=== PATIENT | male | born 1945 | race Caucasian/White ===

== ENCOUNTER 2018-11-08 19:43 | Inpatient (IN) | payer MEDICARE, OTHER ==
[~2018-11-08 19:43] MED LIST: Iopamidol 370 76% 100 ML VIAL ONE; Iopamidol 370 76% 50 ML VIAL FS ONE
[2018-11-08] MEDS ORDERED: Ondansetron PF 4 MG/2 ML Vial ONE (21:30)
--- NOTE | 2018-11-08 22:00 | CT ---
CT ABDOMEN AND PELVIS WITH CONTRAST: HISTORY: Abdominal pain with nausea. COMPARISON: Recent radiograph, same date. FINDINGS: Scarring/atelectasis at the imaged lung bases. Liver: No focal hepatic lesion. Gallbladder: Unremarkable. Pancreas: Atrophic. Spleen: Unremarkable. Adrenal glands: Unremarkable. Kidneys: No renal calculus or acute obstruction. Bilateral parapelvic cyst formation of each kid fina noted. Bowel: Abnormal distention of fluid-filled bowel, with administered enteric contrast traversing to t he level of the jejunum. There is a point of transition at the right mid abdomen, anteriorly, with adjacent swirling of the mesentery and a torsion of the bowel, with a marked decompression of bowel l umen within this region, compatible with a high-grade transition point. Urinary Bladder: The urinary bladder is unremarkable. Adenopathy: No adenopathy within the abdomen or pelvis. Free Air: No free air. Ascites: No ascites. Osseous structures: No acute osseous abnormalities. IMPRESSION: High-grade mechanical bowel obstruction with point of transition at the right mid abdomen. At this s ite, there is swirling of the mesentery and torsion of the bowel, which may relate to an internal hernia. Recommend surgical consultation. Transcribed Date/Time: 11/08/2018 11:29 PM
[2018-11-08] MEDS ORDERED: hydrALAZINE 20 MG/ML VIAL SLOW IVP PRN (23:06)
[2018-11-08] MEDS ORDERED: Sodium Chloride 0.9% (PF) 10 ML VIAL FS PRN (23:13)
[2018-11-08] MEDS ORDERED: Sodium Chloride 0.9% 1,000 ML IV SCH (23:15)
[2018-11-08] MEDS ORDERED: Chloraseptic Spray 180 ml Bottle PO PRN (23:18)
[2018-11-09] MEDS: D5 1/2 NS w/20 mEq KCL 1,000 ML IV SCH ×3 (00:27→17:50)
[2018-11-09 01:47] VITALS: BMI 31.2
--- NOTE | 2018-11-09 03:10 | HP ---
CHIEF COMPLAINT: Nausea and vomiting. HISTORY OF PRESENT ILLNESS: Mr. Nguyen is a 73-year-old male who began feeling gassy last night. He woke up around 4 o'clock this morning with severe nausea and vomited several times. He would have some abdominal pain right before he throws up, which was relieved by vomiting. This happened about every 2 hours all day long, so he came into the emergency room and had an abdominal film performed, which was worrisome for a bowel obstruction. He was sent to [place] for further evaluation and a CT was performed, which confirmed the diagnosis. He had an NG tube placed with removal of about 2 L of fluid from his stomach and the nausea completely resolved. He continues to deny any abdominal pain. He states that he had a normal bowel movement this morning, but did not pass much gas as he usually does and does not think he has passed gas all day today. PAST MEDICAL HISTORY: Hypertension, hyperlipidemia, and prostate cancer. PAST SURGICAL HISTORY: Prostatectomy and bilateral knee replacement. ALLERGIES: HE HAS NO KNOWN DRUG ALLERGIES. MEDICATION: He takes a medication for his blood pressure and another for his cholesterol, but does not remember the names of his medications. REVIEW OF SYSTEMS: Ten system review of systems is negative except per HPI. PHYSICAL EXAMINATION: VITAL SIGNS: The patient is afebrile, slightly tachycardic and hypertensive. Normal O2 sats and respirations. GENERAL: Reveals an elderly man, in no acute distress. Resting comfortably in bed with an NG tube in place with brown fluid in the tubing and canister. HEENT: Unremarkable. NECK: Supple without lymphadenopathy or thyroid nodules. HEART: Regular in its rate and rhythm. He has a soft systolic murmur heard best at the right upper sternal border. LUNGS: Clear to auscultation bilaterally. ABDOMEN: Soft and distended, non-tympanitic. He states that his girth is normal for him. No palpable masses or hernias. Nontender to palpation. EXTREMITIES: Warm well perfused without edema. NEUROLOGIC: No focal deficits. PSYCHIATRIC: Alert, oriented and appropriate. LABORATORY DATA: White count is mildly elevated at 15, hematocrit is up from its baseline at 53, it normally runs 44-49, BUN and creatinine are also up from their baseline, there are 27 and 1.55, whereas they were 18 and 0.93 last month. Blood sugar is mildly elevated at 175. LFTs are normal. Lactate is normal. IMAGING: CT images were reviewed and I agree with the written results. The patient does appear to have a fairly high-grade small bowel obstruction involving primarily the proximal jejunum. ASSESSMENT: High-grade small bowel obstruction, currently asymptomatic with NG tube in place. Options include surgical exploration or observation. The patient is clinically benign on exam. He is somewhat dehydrated, so I have ordered IV fluids. After discussion of the options, we are going to try a brief period of observation. If at any point he develops worsening abdominal pain or nausea or develops abdominal tenderness, he will be taken to the operating room. If his symptoms resolve, then a 2nd contrast study will likely be obtained in 24-48 hours. His family has been asked to bring in his home medications. We will clamp his NG tube for him to get up and ambulate. I have ordered Lovenox and sequential compression devices for deep venous thrombosis prophylaxis and Protonix for gastrointestinal prophylaxis. All of his and his family's questions were answered and admit orders have been written. Thanks very much. Job ID: [id number]
[2018-11-09 05:15] LABS: #Eosinphils 0.2 thou/uL (0.0-0.7); #Lymphocytes 2.2 thou/uL (1.20-3.40); #Monocytes 1.1 thou/uL (0.11-0.59); #Neutrophils 8.4 thou/uL (1.40-6.50); %Basophils 0.4 % (0.0-1.0); %Eosinophils 1.6 % (0.0-10.0); %Lymphocytes 18.3 % (21.0-51.0); %Monocytes 9.5 % (0.0-10.0); %Neutrophils 70.2 % (42.0-75.0); Hemoglobin 15.9 g/dL (14.0-18.0); Mean Corpuscular HGB CONC 33.2 g/dL (32.0-36.0); Mean Corpuscular Hemoglobin 31.9 pg (27.0-31.0); Mean Corpuscular Volume 96.2 fL (78.0-98.0); Mean Platelet Volume 9.1 fL (7.4-10.4); Platelet Count 246 thou/uL (130-400); RBC Distribution Width 12.4 % (11.5-14.5); Red Blood Cell (RBC) Count 4.99 mill/uL (4.70-6.10); White Blood Cell (WBC) Count 11.9 thou/uL (4.8-10.8)
[2018-11-09 05:24] LABS: ALT (SGPT) 12 U/L (8-55); AST (SGOT) 13 U/L (5-34); Albumin 2.9 g/dL (3.4-4.8); Alkaline Phosphatase 52 U/L (40-150); Anion Gap 12 mmol/L (10-20); BUN (Urea Nitrogen) 22 mg/dL (8.4-25.7); Bilirubin, Total 0.9 mg/dL (0.2-1.2); Calc. Creatinine Clearance 101 mL/min (70-130); Calcium 8.9 mg/dL (7.8-10.44); Carbon Dioxide 27 mmol/L (23-31); Chloride 102 mmol/L (98-107); Estimated GFR-MDRD 69; Globulin 3.7 g/dL (2.4-3.5); Glucose 160 mg/dL (83-110); Magnesium 1.6 mg/dL (1.6-2.6); Phosphorus 4.4 mg/dL (2.3-4.7); Potassium 3.9 mmol/L (3.5-5.1); Protein, Total 6.6 g/dL (5.8-8.1); Sodium 137 mmol/L (136-145)
[2018-11-09] MEDS: Pantoprazole 40 MG VIAL IVP SCH ×2 (09:08→20:40)
[2018-11-09] MEDS: Enoxaparin Sodium 40 MG/0.4 ML SYRINGE SC SCH ×2 (09:08→20:40)
--- NOTE | 2018-11-09 19:25 | PDOC.GSPN ---
Surgery Progress Note: Subj - Subjective Narrative: Mr. Nguyen feels better today. No nausea or vomiting. He is passing gas and having bowel movements. NG tube output has gone down today although he had quite a bit out last night. His abdomen is soft and nontender but still distended. Bowel sounds are slightly hyperactive. Labs look better today. I will leave the NG tube in tonight and get a Gastrografin small bowel follow- through in the morning. I suspect the bowel obstruction is resolving on its own. Surgery Progress Note: Obj - Vital signs Vital signs: Vital Signs - Most Recent Temp Pulse Resp BP Pulse Ox 98.7 F 98 18 138/85 98 11/09/18 15:14 11/09/18 15:14 11/09/18 15:14 11/09/18 15:14 11/09/18 15:14 Surgery Progress Note: Results - Labs Result Diagrams: 11/09/18 04:36 11/09/18 04:36
[2018-11-10] MEDS: D5 1/2 NS w/20 mEq KCL 1,000 ML IV SCH ×4 (00:43→23:07)
[2018-11-10] MEDS: Pantoprazole 40 MG VIAL IVP SCH (08:37)
[2018-11-10] MEDS: Enoxaparin Sodium 40 MG/0.4 ML SYRINGE SC SCH ×2 (08:38→20:32)
[2018-11-10] MEDS ORDERED: MD-Gastroview 120 ML BOT ONE (14:04)
--- NOTE | 2018-11-10 14:14 | RAD ---
Small bowel follow-through: 11/10/2018 COMPARISON: None HISTORY: Evaluate small bowel obstruction FINDINGS: [employer] imaging of the abdomen demonstrates moderately dilated gas-filled loops of small alex l within the mid abdomen/left midabdomen with probable wall thickening suggesting bowel wall edema. There is a nasogastric tube with in the left upper quadrant. The patient was administered Gastrografin via the nasogastric tube. 1 minute and 15 minute imaging fo llowing administration demonstrates contrast media within dilated proximal jejunal loops. Imaging at 30 minutes and 45 minutes demonstrates filling of additional dilated proximal small bowel loops. A t 1 hour there are multiple persistent dilated proximal/mid small bowel loops. Imaging was then performed at 4 hours, demonstrating contrast media within the colon. There is persistent opacificatio n of proximal dilated small bowel with distal normal caliber small bowel. IMPRESSION: Contrast media reaches the colon by 4 hours. There is persistent dilated proximal small b owel with more normal caliber distal small bowel suggesting partial small bowel obstruction.
[2018-11-10] MEDS ORDERED: Amlodipine 10 MG TAB PO SCH (21:00)
[2018-11-10] MEDS ORDERED: Losartan 25 MG TAB PO SCH (21:00)
[2018-11-10] MEDS ORDERED: Amitriptyline HCl 25 MG TAB PO SCH (21:00)
[2018-11-10] MEDS ORDERED: Hydrochlorothiazide 25 MG TAB PO SCH (21:00)
[2018-11-10] MEDS ORDERED: Atorvastatin Calcium 10 MG TAB PO SCH (21:00)
--- NOTE | 2018-11-11 08:10 | PRG ---
DATE OF SERVICE: 11/10/2018 SUBJECTIVE: Mr. Nguyen feels good. He is passing gas and having normal bowel movements. He states that he is not having any nausea or distentions and his abdomen feels normal. He has his gastrografin small bowel followthrough this morning. At 1 hour, the contrast was still in the small intestine, the next images were 4 hours and by that time, the contrast had passed to the rectum. He does have some persistent distention of the proximal small bowel suggesting that a partial obstruction still exists that he has normal bowel sounds, his abdomen is nondistended, completely nontender and his NG tube has been clamped all day. ASSESSMENT AND PLAN: Partial small-bowel obstruction gastrografin small bowel followthrough. Options include surgical intervention or trial of diet and he prefers trial of diet. His NG tube was removed and he was started on clear liquids. If he tolerates that recommended. Job ID: [id number]
[2018-11-11] MEDS: D5 1/2 NS w/20 mEq KCL 1,000 ML IV SCH ×2 (08:46→12:36)
[2018-11-11] MEDS: Enoxaparin Sodium 40 MG/0.4 ML SYRINGE SC SCH (08:46)
[2018-11-11] MEDS ORDERED: Fish Oil 1,000 MG CAP PO SCH (09:00)
[2018-11-11] MEDS ORDERED: Aspirin 81 mg Enteric Coated Tablet PO SCH (09:00)
[2018-11-11 16:35] VITALS: BP 150/86; TEMP 98.6
[2018-11-11] MEDS ORDERED: Non-Formulary Item 1 EACH (Benazepril Hcl [Benazepril Hcl] 40 MG) PO SCH (21:00)
[2018-11-11] MEDS ORDERED: Amitriptyline HCl 25 MG TAB PO SCH (21:00)
[2018-11-11] MEDS ORDERED: Simvastatin 20 MG TAB PO SCH (21:00)
[2018-11-11] MEDS ORDERED: Atorvastatin Calcium 10 MG TAB PO SCH (21:00)
[2018-11-11] MEDS ORDERED: Amlodipine 10 MG TAB PO SCH (21:00)
[2018-11-11] MEDS ORDERED: Non-Formulary Item 1 EACH (Amitriptyline Hcl [Amitriptyline Hcl] 50 MG) PO SCH (21:00)
[2018-11-11] MEDS ORDERED: Non-Formulary Item 1 EACH (Losartan/Hydrochlorothiazide [Losartan-Hctz 100-12.5 Mg Tab] 1 PO SCH (21:00)
[2018-11-12] MEDS ORDERED: Non-Formulary Item 1 EACH (Esomeprazole Magnesium [Nexium 24hr] 20 MG) PO SCH (09:00)
[2018-11-12] MEDS ORDERED: Losartan 25 MG TAB PO SCH (09:00)
[2018-11-12] MEDS ORDERED: Aspirin 81 mg Enteric Coated Tablet PO SCH (09:00)
[2018-11-12] MEDS ORDERED: Fish Oil 1,000 MG CAP PO SCH (09:00)
[2018-11-12] MEDS ORDERED: Hydrochlorothiazide 25 MG TAB PO SCH (09:00)
== END 2018-11-11 17:40 | disposition home or self-care (01) | DRG 390 ==
LOC: ERS 19:43 → SURG B 23:23
PROVIDERS: ADMIT Surgery; ATTEND Surgery
DX: K56.600 Partial intestinal obstruction, unspecified as to cause (principal); I10 Essential (primary) hypertension; E78.5 Hyperlipidemia, unspecified; F17.220 Nicotine dependence, chewing tobacco, uncomplicated; Z96.653 Presence of artificial knee joint, bilateral; Z79.899 Other long term (current) drug therapy; Z85.46 Personal history of malignant neoplasm of prostate
CPT/HCPCS: 36415; 74177; 74250; 80053; 83735; 84100; 85025; 96374; C9113; J1650; J2405; Q9963; Q9967

== ENCOUNTER 2018-11-29 10:21 | Inpatient (IN) | payer MEDICARE, OTHER ==
[2018-11-29 10:56] LABS: #Eosinphils 0.1 thou/uL (0.0-0.7); #Lymphocytes 0.8 thou/uL (1.20-3.40); #Monocytes 0.8 thou/uL (0.11-0.59); #Neutrophils 12.6 thou/uL (1.40-6.50); %Basophils 0.1 % (0.0-1.0); %Eosinophils 0.4 % (0.0-10.0); %Lymphocytes 5.5 % (21.0-51.0); %Monocytes 5.8 % (0.0-10.0); %Neutrophils 88.2 % (42.0-75.0); Hemoglobin 17.1 g/dL (14.0-18.0); Mean Corpuscular HGB CONC 33.4 g/dL (32.0-36.0); Mean Corpuscular Hemoglobin 32.7 pg (27.0-31.0); Mean Corpuscular Volume 97.7 fL (78.0-98.0); Mean Platelet Volume 8.5 fL (7.4-10.4); Platelet Count 271 thou/uL (130-400); RBC Distribution Width 12.4 % (11.5-14.5); Red Blood Cell (RBC) Count 5.24 mill/uL (4.70-6.10); White Blood Cell (WBC) Count 14.3 thou/uL (4.8-10.8)
[2018-11-29 11:16] LABS: ALT (SGPT) 12 U/L (8-55); AST (SGOT) 12 U/L (5-34); Albumin 3.2 g/dL (3.4-4.8); Alkaline Phosphatase 54 U/L (40-150); Anion Gap 14 mmol/L (10-20); BUN (Urea Nitrogen) 28 mg/dL (8.4-25.7); Bilirubin, Total 0.9 mg/dL (0.2-1.2); Calc. Creatinine Clearance 0 mL/min (70-130); Calcium 8.8 mg/dL (7.8-10.44); Carbon Dioxide 23 mmol/L (23-31); Chloride 103 mmol/L (98-107); Estimated GFR-MDRD 47; Globulin 3.8 g/dL (2.4-3.5); Glucose 149 mg/dL (83-110); Lipase 7 U/L (8-78); Potassium 3.5 mmol/L (3.5-5.1); Sodium 136 mmol/L (136-145)
--- NOTE | 2018-11-29 11:50 | CT ---
EXAM: CT ABDOMEN AND PELVIS HISTORY: Nausea. Vomiting. COMPARISON: 11/08/2018 Procedure: Multiple contiguous axial images were obtained and a CT of the abdomen and pelvis with IV contrast. C oronal reformats were performed. FINDINGS: Lower Chest: Scarring and atelectasis in the lung bases Vessels: Normal caliber aorta. Heart: Normal heart size. Atherosclerosis of the aortic valve. No pericardial fluid Abdomen: Portal vein:Patent Gallbladder: No calcified gallstones. Normal caliber wall. Liver: within normal limits. Pancreas: Stable atrophy. Spleen: within normal limits. Adrenals: within normal limits. Kidneys: Symmetric enhancement. Stable bilateral parapelvic cyst. Bilaterally no structural uropathy. Peritoneum: No ascites or free air, no fluid collection. Bowel: Limited evaluation due to the absence of oral contrast hydration. The mid to distal jejunal lo ops are dilated and fluid-filled. There appears to be a transition at the level of the distal jejunal loop/proximal ileum. Mid to distal ileum are decompressed. Ileocecal junction is normal. Appe ndix is not appreciated. No inflammation of the cecal apex. Fluid attenuation in the right hemicolon. Decompressed left hemicolon. Occasional diverticulum. No diverticulitis. Mesentery and Retroperitoneum: No enlarged mesenteric or retroperitoneal lymph nodes. Abdominal Wall: within normal limits. Pelvis: Reproductive Organs: No pelvic masses. Pelvis: within normal limits. Bladder: within normal limits. Bones: within normal limits. IMPRESSION: 1. Fluid-filled, dilated loops of small bowel. There is evidence for early, partial small bowel obstr uction. General surgical consultation is recommended.
[2018-11-29] MEDS ORDERED: Benzocaine 20% Spray 60 ML CAN ONE ×2 (12:44→12:50)
[2018-11-29 12:49] LABS: Bacteria/HPF None Seen HPF (None Seen); Bilirubin Negative (Negative); Blood, Urine Negative (Negative); Clarity Clear (Clear); Glucose, Urine (Dipstick) Normal (Negative); Leukocyte Negative Leu/uL (Negative); Nitrite Negative (Negative); Protein, Urine (Dipstick) 30 mg/dL (Neg-Trace); Squamous Epithelial 0-3 HPF (0-3); Urobilinogen Normal mg/dL (Less than 2); WBC/HPF 0-3 HPF (0-3)
[2018-11-29] MEDS ORDERED: hydrALAZINE 20 MG/ML VIAL SLOW IVP PRN (13:04)
[2018-11-29] MEDS ORDERED: ISOVUE-370 76%-LOCM 1 ML ONE (13:56)
[2018-11-29 15:06] VITALS: BMI 30.6
[2018-11-29] MEDS: Dextrose 5 % And 0.9 % NaCl 1,000 ML IV SCH (15:33)
[2018-11-29] MEDS ORDERED: Sodium Chloride 0.9% 1,000 ML IV SCH (18:00)
--- NOTE | 2018-11-29 21:09 | HP ---
I have examined the patient. I have discussed the case with Dr. Maryanne Damon and agree with her assessment and plan. HISTORY OF PRESENT ILLNESS: Mr. Sameer Nguyen is a very pleasant 73-year-old white man, who presented to the ER with abdominal pain and distention. He had been hospitalized approximately three weeks ago on October for very similar issues. At that time, he was found to have a small-bowel obstruction, which mostly resolved with dietary changes and NG suctioning. He elected at that time to continue a slow advancement of the diet as opposed to surgery and was discharged. He stated he did very well for the next three weeks until last night at approximately 10:00 a.m. At that time, he has had developed worsening abdominal pain and several episodes of vomiting. This prompted his visit to the ER today, where he was subsequently found to have a recurrent small-bowel obstruction. PHYSICAL EXAMINATION: VITAL SIGNS: His blood pressure is 126/76, his pulse rate is 88 and regular. He is afebrile. GENERAL: He is awake, alert, and very pleasant, in no acute distress. EAR, NOSE, AND THROAT: Mucous membranes slightly dry. No erythema or exudate. NECK: Supple. CARDIAC: Heart rhythm is regular. S4 gallop. No murmur or rub noted. LUNGS: Diminished, but clear. No rales, rhonchi, or wheezes. ABDOMEN: Slightly distended diffusely and minimally tender. No rebound or rigidity. He has a well-healed midline incision from the umbilicus distally from an old surgery for prostate cancer. No bruits are noted. EXTREMITIES: No edema. NEUROLOGIC: No focal deficits. LABORATORY DATA: CBC; white count is 14,300, hemoglobin is 17.1, hematocrit 51.2, probably reflecting some degree of dehydration. Chemistries; sodium is 136, potassium 3.5, chloride 103, bicarb 23, BUN 28, creatinine 1.47, again probably reflecting mild JAMAL caused by dehydration. Abdominal and pelvis CT showed fluid-filled dilated loops of small bowel. There was evidence for early partial small-bowel obstruction. ASSESSMENT: Small-bowel obstruction. PLAN: NG suctioning, IV fluids. Surgery has already been consulted and we will await their input and follow with them. Job ID: [id number]
--- NOTE | 2018-11-29 21:27 | CON ---
DATE OF CONSULTATION: 11/29/2018 PRIMARY SERVICE: General surgery, Dr. Wilkinson. HISTORY OF PRESENT ILLNESS: Sameer Nguyen is a 73-year-old male with past medical history of hypertension and prostate cancer, who presented to the ER complaining of abdominal pain, nausea, vomiting. The patient reported that a couple of weeks ago, he was diagnosed with a partial small-bowel obstruction, was placed on a clear liquid diet and instructed to follow up for hopeful resolution. He reports that he was able to tolerate liquids and then transitioned to a regular diet and ate some red meat and then yesterday, started having severe abdominal pain, increased flatulence, nausea, vomiting with multiple episodes of emesis starting around 10:00 p.m. last night. The patient reported yesterday morning, he had a normal full bowel movement; today, had a very watery bowel movement. The patient denies any fevers or chills. The patient does have a history of prostatic resection. PAST MEDICAL HISTORY: 1. Hypertension. 2. Prostate cancer. 3. Hyperlipidemia. PAST SURGICAL HISTORY: 1. Bilateral partial knee replacement. 2. Prostatectomy. MEDICATIONS: 1. Amitriptyline 50 mg p.o. daily. 2. Amlodipine 10 mg p.o. daily. 3. Simvastatin 20 mg p.o. h.s. 4. Benazepril 40 mg p.o. daily. 5. Cozaar 100 mg p.o. daily. ALLERGIES: NO KNOWN DRUG ALLERGIES. FAMILY HISTORY: Denies. SOCIAL HISTORY: The patient is . Drinks socially and chews tobacco. REVIEW OF SYSTEMS: A 10-point review of systems was conducted and was negative except what was mentioned in HPI. PHYSICAL EXAMINATION: VITAL SIGNS: Blood pressure 121/67, pulse 102, respiratory rate 18, temperature 98.3, weight 111 kg. GENERAL: Alert, oriented, resting comfortably in bed, in no acute distress. HEENT: Moist mucous membranes. Normocephalic, atraumatic. Extraocular muscles intact. No scleral icterus or conjunctival injection. No pharyngeal erythema or exudates. NECK: Supple. No lymphadenopathy. CARDIOVASCULAR: Regular rate and rhythm. No murmurs, gallops, or rubs. LUNGS: Clear to auscultation bilaterally. No wheezes. No use of accessory muscles of respiration. ABDOMEN: Protuberant. Mildly distended. Soft and nontender to palpation. Hyperactive bowel sounds. MUSCULOSKELETAL: No cyanosis or edema. SKIN: No rashes or lesions. NEUROLOGIC: Cranial nerves 2 through 12 intact. 5/5 strength in all 4 extremities. No focal deficits. PSYCHIATRIC: Alert and oriented. Euthymic mood. Congruent affect. Memory grossly intact. LABORATORY DATA: WBC 14.3, hemoglobin 17.1, hematocrit 51.2, platelet count 271. Sodium 136, potassium 3.5, chloride 103, CO2 of 23, BUN 28, creatinine 1.47, GFR 47, AST 12, ALT 12, total bilirubin 0.9, alkaline phosphatase 54. Lipase 7. IMAGING STUDIES: CT abdomen and pelvis was performed that showed fluid-filled dilated loops of small bowel consistent with early partial small-bowel obstruction. ASSESSMENT AND PLAN: 1. Small-bowel obstruction. Dr. Wilkinson is primary for this patient and will follow his records for the plan. The NG tube being placed during my assessment of the patient in the ED. We will continue keeping the patient n.p.o. at this time. 2. Acute kidney injury on chronic kidney disease 2. The patient likely dehydrated due to nausea, vomiting, and decreased p.o. intake. We will give normal saline at 125 mL/h. 3. Hypertension. The patient is currently n.p.o. due to small-bowel obstruction. We will restart home blood pressure medicines once tolerating p.o. We will put for hydralazine p.r.n. if systolic blood pressure greater than 180. 4. Prostate cancer, status post resection, aware. Primary care physician, Dr. Cobb. This patient's history and physical, assessment, and plan were discussed with Dr. Heron Mckeon, who agrees with the plan as discussed. We appreciate the opportunity to participate in the care of this patient. Job ID: [id number]
--- NOTE | 2018-11-29 23:22 | HP ---
CHIEF COMPLAINT: Nausea, vomiting. HISTORY OF PRESENT ILLNESS: The patient is a 73-year-old male who 3 weeks ago was admitted with a small bowel obstruction, resolved. Yesterday, started vomiting again and developed abdominal distention. He stated after he was vomiting, he had a bowel movement. He had a good bowel movement this morning, but he was still having some bloating and nausea, so he came to the hospital. He denies any fever or chills. He is not passing flatus. He had a robot prostatectomy in 2016, his only abdominal surgery. He had a colonoscopy and EGD about a year ago. PAST MEDICAL HISTORY: Hypertension, hyperlipidemia. PAST SURGICAL HISTORY: He had knee surgery x2 and a robotic prostatectomy. ALLERGIES: NO KNOWN DRUG ALLERGIES. MEDICATIONS: 1. Simvastatin. 2. Amlodipine. 3. Amitriptyline. 4. Benazepril. 5. Losartan. SOCIAL HISTORY: He is . 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 He uses oral tobacco one can per day. Social alcohol. FAMILY HISTORY: Noncontributory. PHYSICAL EXAMINATION: VITAL SIGNS: Temperature is 97.8, pulse 99, blood pressure 114/72. GENERAL: He is awake, alert, in no apparent distress. He has an NG tube in, draining minimal fluid. LUNGS: Clear. HEART: Regular rate and rhythm. ABDOMEN: Obese, soft, nontender. There are some bowel sounds. LABORATORY DATA: White count 14, H and H 17 and 51, platelet count 271. Electrolytes are fine. His creatinine is elevated at 1.4, BUN of 28, glucose 149. He had a CT scan of the abdomen which showed a recurrent small bowel obstruction with mid to distal ileum decompressed and possibly transition zone at the level of the jejunum or proximal ileum. ASSESSMENT: Partial small bowel obstruction. PLAN: NG suction, IV hydration, small bowel follow-through in the morning. Job ID: [id number]
[2018-11-30] MEDS: Dextrose 5 % And 0.9 % NaCl 1,000 ML IV SCH (01:00)
[2018-11-30 05:17] LABS: #Eosinphils 0.2 thou/uL (0.0-0.7); #Lymphocytes 1.3 thou/uL (1.20-3.40); #Monocytes 0.7 thou/uL (0.11-0.59); #Neutrophils 4.4 thou/uL (1.40-6.50); %Basophils 0.7 % (0.0-1.0); %Eosinophils 3.2 % (0.0-10.0); %Lymphocytes 19.5 % (21.0-51.0); %Monocytes 10.8 % (0.0-10.0); %Neutrophils 65.9 % (42.0-75.0); Hemoglobin 14.7 g/dL (14.0-18.0); Mean Corpuscular HGB CONC 34.3 g/dL (32.0-36.0); Mean Corpuscular Hemoglobin 33.6 pg (27.0-31.0); Mean Corpuscular Volume 97.9 fL (78.0-98.0); Mean Platelet Volume 8.6 fL (7.4-10.4); Platelet Count 211 thou/uL (130-400); RBC Distribution Width 12.5 % (11.5-14.5); Red Blood Cell (RBC) Count 4.38 mill/uL (4.70-6.10); White Blood Cell (WBC) Count 6.7 thou/uL (4.8-10.8)
[2018-11-30 05:41] LABS: Anion Gap 10 mmol/L (10-20); BUN (Urea Nitrogen) 21 mg/dL (8.4-25.7); Calc. Creatinine Clearance 128 mL/min (70-130); Calcium 7.9 mg/dL (7.8-10.44); Carbon Dioxide 24 mmol/L (23-31); Chloride 106 mmol/L (98-107); Estimated GFR-MDRD Greater than 90; Glucose 131 mg/dL (83-110); Potassium 3.4 mmol/L (3.5-5.1); Sodium 137 mmol/L (136-145)
--- NOTE | 2018-11-30 08:57 | PRG ---
DATE OF SERVICE: 11/30/2018 SUBJECTIVE: The patient is passing gas. Denies any pain. Denies nausea or vomiting. OBJECTIVE: VITAL SIGNS: Temperature 98, pulse 78, blood pressure 128/72. NG tube put out just 125. LABORATORY DATA: His white count is down to 6.7, H and H 14 and 42, platelet count 211. Electrolytes are fine. ASSESSMENT: Small bowel obstruction, resolving. PLAN: Check a KUB, if it looks fairly normal. Discontinue NG and advance diet. If there is still abdominal distention, recommend a small bowel follow through. Job ID: [id number]
--- NOTE | 2018-11-30 09:15 | PDOC.FM ---
- Subjective Subjective: Mr. Nguyen is feeling well this morning. Passing gas. No other concerns. Denies abdominal pain, nausea. - Objective Vital Signs & Weight: Vital Signs (12 hours) Temp Pulse Resp BP Pulse Ox 11/30/18 08:40 93 L 11/30/18 07:10 98.1 F 78 18 128/72 93 L 11/30/18 03:10 98.1 F 86 16 159/81 H 93 L 11/29/18 23:11 98.7 F 93 16 111/70 93 L Weight Weight 111.13 kg I&O: 11/29/18 11/30/18 12/01/18 06:59 06:59 06:59 Intake Total 480 Output Total 625 Balance -145 Result Diagrams: 11/30/18 04:06 11/30/18 04:06 Phys Exam - Physical Examination Constitutional: NAD (NG in place) Respiratory: no wheezing, clear to auscultation bilateral Cardiovascular: RRR, no significant murmur Gastrointestinal: soft, non-tender (hypoactive bowel sounds) Musculoskeletal: no edema Neurological: non-focal Psychiatric: normal affect Skin: normal turgor Dx/Plan (1) SBO (small bowel obstruction) Code(s): K56.609 - UNSP INTESTNL OBST, UNSP TO PARTIAL VERSUS COMPLETE OBST Status: Acute (2) Acute kidney injury superimposed on CKD Code(s): N17.9 - ACUTE KIDNEY FAILURE, UNSPECIFIED; N18.9 - CHRONIC KIDNEY DISEASE, UNSPECIFIED Status: Acute (3) HTN (hypertension) Code(s): I10 - ESSENTIAL (PRIMARY) HYPERTENSION Status: Chronic (4) History of prostate cancer Code(s): Z85.46 - PERSONAL HISTORY OF MALIGNANT NEOPLASM OF PROSTATE Status: Chronic - Plan Plan: SBO - manage by Dr. Wilkinson. NG tube in place and patient NPO JAMAL on CKD2 - 2/2 decreased intake, volume depletion HTN - will continue to monitor, has not required prn medications - will restart home meds when able to have PO Hx prostate cancer - s/p resection Addendum - Attending - Attending Attestation Date/Time: 11/30/18 120 I personally evaluated the patient and discussed the management with Dr. Sadler I agree with the History, Examination, Assessment and Plan documented above with any addition or exceptions noted below - Patient without complaints. Denies any abdominal pain. (+) flatus. Afebrile VSS. A/P: 1) Partial SBO- plans as per surgery; NGT clamped durrently 2) HTN- well controlled currently; resume home meds once able to take po. Use prn IV meds for now if needed for BP control. Appreciate consult and will continue to follow.
--- NOTE | 2018-11-30 09:26 | RAD ---
ABDOMEN 1 VIEW: HISTORY: Small bowel obstruction. COMPARISON: CT scan 11/29/2018. FINDINGS: Persistent abnormal dilated small bowel loops in the central abdomen. Moderate amount of gas in the r ight colon and transverse colon and some gas and fecal material in the left colon and sigmoid colon. NG tube in place. IMPRESSION: Stable abnormally dilated small bowel loops with prominent gas and scattered fecal material in the co radha. Follow-up Gastrografin small bowel study might be of benefit for further assessing these dilated small bowel loops. Transcribed Date/Time: 11/30/2018 9:27 AM
[2018-11-30] MEDS ORDERED: MD-Gastroview 120 ML BOT ONE (14:41)
--- NOTE | 2018-11-30 16:22 | RAD ---
SMALL BOWEL EXAMINATION: Gastrografin small bowel exam performed. Indication: Small bowel obstruction. Correlation: CT of 11-29-18 FINDINGS: Patient was given Gastrografin orally and sequential images were obtained of the abdomen. Initial images show mild dilatation of the jejunum. Subsequent images show mild dilatation of the pro ximal ileum. Distal ilial loops appear more normal caliber. Contrast reaches the right colon within two hours. IMPRESSION: Mild proximal to mid small bowel dilatation. Contrast reaches the colon at 2 hours. There may be a lo w grade mid small bowel obstruction present. POS: ROSA
[2018-11-30] MEDS: D5 1/2 NS w/20 mEq KCL 1,000 ML IV SCH (16:24)
[2018-12-01] MEDS: D5 1/2 NS w/20 mEq KCL 1,000 ML IV SCH ×3 (00:32→08:33)
[2018-12-01] MEDS ORDERED: diphenhydrAMINE 50 MG/ML VIAL IVP SCH (01:00)
--- NOTE | 2018-12-01 09:05 | PRG ---
DATE OF SERVICE: 12/01/2018 SUBJECTIVE: The patient is feeling fine. No pain. No nausea or vomiting. He has had several bowel movements. OBJECTIVE: VITAL SIGNS: Temperature 98, pulse , blood pressure 143/79. GENERAL: He looks good. ABDOMEN: Soft, nondistended, nontender. His small bowel follow through showed some slowing, but no obstruction, went to the colon in less than 2 hours. ASSESSMENT: Small bowel obstruction, resolved. PLAN: Discontinue NG. Clear liquid diet. Advance as tolerated. Job ID: [id number]
--- NOTE | 2018-12-01 11:25 | PDOC.FM ---
- Subjective Subjective: Mr. Nguyen is feeling well. He had 3-4 bowel movements overnight. Denies nausea or abdominal pain. No concerns. - Objective Vital Signs & Weight: Vital Signs (12 hours) Temp Pulse Resp BP Pulse Ox 12/01/18 07:32 98.0 F 75 18 143/79 H 93 L 12/01/18 03:21 98.2 F 78 16 114/67 93 L 12/01/18 00:00 98.6 F 83 16 122/72 93 L Weight Weight 105.432 kg I&O: 11/30/18 12/01/18 12/02/18 06:59 06:59 06:59 Intake Total 480 1500 Output Total 625 850 Balance -145 650 Result Diagrams: 11/30/18 04:06 11/30/18 04:06 Phys Exam - Physical Examination Constitutional: NAD Respiratory: no wheezing, clear to auscultation bilateral Cardiovascular: RRR, no significant murmur Gastrointestinal: soft, non-tender, no distention, positive bowel sounds Musculoskeletal: no edema Neurological: non-focal Psychiatric: normal affect Skin: normal turgor Dx/Plan (1) SBO (small bowel obstruction) Code(s): K56.609 - UNSP INTESTNL OBST, UNSP TO PARTIAL VERSUS COMPLETE OBST Status: Acute (2) Acute kidney injury superimposed on CKD Code(s): N17.9 - ACUTE KIDNEY FAILURE, UNSPECIFIED; N18.9 - CHRONIC KIDNEY DISEASE, UNSPECIFIED Status: Acute (3) HTN (hypertension) Code(s): I10 - ESSENTIAL (PRIMARY) HYPERTENSION Status: Chronic (4) History of prostate cancer Code(s): Z85.46 - PERSONAL HISTORY OF MALIGNANT NEOPLASM OF PROSTATE Status: Chronic - Plan Plan: Partial SBO, resolved - manage by Dr. Wilkinson. NG tube pulled this am JAMAL on CKD2 - 2/2 decreased intake, volume depletion HTN - will continue to monitor, has not required prn medications - will restart home meds as appropriate after sure of home med rec. Currently says he is taking both jean marie and arb Hx prostate cancer - s/p resection HLD - restart home statin Will restart home medications as appropriate. Work on getting good med rec for BP meds. Addendum - Attending - Attending Attestation Date/Time: 12/02/18918 I personally evaluated the patient and discussed the management with Dr. Sadler on 12/01/2018 I agree with the History, Examination, Assessment and Plan documented above with any addition or exceptions noted below - Patient feeling better; NGT removed and started on clear liquids. Afebrile VSS. A/P: 1) Partial SBO- resolved- plans as per surgery. 2) HTN - resume home meds
[2018-12-01 11:54] VITALS: BP 135/70; TEMP 97.7
[2018-12-01] MEDS ORDERED: Atorvastatin Calcium 10 MG TAB PO SCH (21:00)
[2018-12-01] MEDS ORDERED: Amitriptyline HCl 25 MG TAB PO SCH (21:00)
--- NOTE | 2018-12-02 03:22 | DIS ---
DATE OF ADMISSION: 11/29/2018 DATE OF DISCHARGE: 12/01/2018 DISCHARGE DIAGNOSIS: Small bowel obstruction, resolved. PROCEDURES DURING ADMISSION: NG suction, IV hydration, small-bowel follow-through. HOSPITAL COURSE: The patient was admitted, treated with NG suction, IV hydration, and started passing a low bit of flatus. KUB still showed some dilated loops of bowel, so he underwent a small-bowel follow-through that was fine. He is now feeling fine. He is tolerating liquids well. He is discharged home. No pain. No nausea. Bowels are functioning well. He will follow up with his primary care physician. Job ID: [id number]
== END 2018-12-01 15:15 | disposition home or self-care (01) | DRG 389 ==
LOC: ERS 10:21 → SURG A 12:36
PROVIDERS: ADMIT Surgery; ATTEND Surgery
DX: K56.600 Partial intestinal obstruction, unspecified as to cause (principal); N17.9 Acute kidney failure, unspecified; E86.0 Dehydration; E78.5 Hyperlipidemia, unspecified; Z96.653 Presence of artificial knee joint, bilateral; I12.9 Hypertensive chronic kidney disease with stage 1 through stage 4 chronic kidney disease, or unspecified chronic kidney disease; N18.2 Chronic kidney disease, stage 2 (mild); F17.220 Nicotine dependence, chewing tobacco, uncomplicated; Z85.46 Personal history of malignant neoplasm of prostate; Z90.79 Acquired absence of other genital organ(s)
CPT/HCPCS: 36415; 74018; 74177; 74250; 80048; 80053; 81003; 81015; 83690; 85025; 93005; 96360; J1200; Q9963; Q9966

== ENCOUNTER 2018-12-23 07:08 | Inpatient (IN) | payer MEDICARE, OTHER ==
[2018-12-22 08:37] VITALS: BMI 28.5
[2018-12-23] MEDS ORDERED: Bupivacaine/Epinephrine 0.25% 30 ML VIAL ONE (08:33)
[2018-12-23] MEDS ORDERED: Fentanyl 100 MCG/2 ML VIAL ONE ×3 (08:45→12:04)
[2018-12-23] MEDS ORDERED: Promethazine HCl 25 MG/ML VIAL IM PRN ×3 (10:48→12:10)
[2018-12-23] MEDS ORDERED: Ondansetron PF 4 MG/2 ML Vial IVP PRN (10:48)
[2018-12-23] MEDS ORDERED: hydrALAZINE 20 MG/ML VIAL SLOW IVP PRN (10:48)
[2018-12-23] MEDS ORDERED: Ondansetron HCl/PF 4 MG/2 ML Vial IVP PRN (11:00)
[2018-12-23] MEDS ORDERED: Promethazine HCl 25 MG/ML VIAL SLOW IVP PRN (11:00)
[2018-12-23] MEDS ORDERED: Zolpidem Tartrate 5 MG TAB PO PRN (12:10)
[2018-12-23] MEDS ORDERED: Naloxone HCl 0.4 mg/ml Vial IV PRN (12:10)
[2018-12-23] MEDS ORDERED: diphenhydrAMINE 50 MG/ML VIAL IVP PRN (12:10)
[2018-12-23] MEDS ORDERED: diphenhydrAMINE 50 MG/ML VIAL IM PRN (12:10)
[2018-12-23] MEDS ORDERED: diphenhydrAMINE 25 MG CAP PO PRN (12:10)
[2018-12-23] MEDS ORDERED: Communication Order-Pharmacy FS SCH (12:15)
--- NOTE | 2018-12-23 13:19 | OP ---
DATE OF PROCEDURE: 12/23/2018 PREOPERATIVE DIAGNOSIS: Recurrent small bowel obstruction. PROCEDURES PERFORMED: Diagnostic laparoscopy, exploratory laparotomy, lysis of adhesions. INDICATIONS: This is a 73-year-old male, who had undergone a laparoscopic robotic-assisted prostatectomy several years ago and over the last 3 months has had multiple small bowel obstructions requiring hospitalization twice. He is unable to tolerate any solid food without severe nausea. FINDINGS: Incredibly surprising dense adhesions extensive of the central and lower abdomen creating an obstruction of the mid small bowel more at the mid ileum, central deep abdominal cavity just above the pelvic inlet. DESCRIPTION OF PROCEDURE: After informed consent was obtained, the patient was taken to the operating room and given general endotracheal anesthesia and placed in the supine position. Abdomen was prepped and draped in usual fashion. Local anesthesia was infiltrated subcutaneously and deep. On the right lateral abdomen, a 5-mm incision was performed. Veress needle was inserted. Drop test was performed. Pneumoperitoneum was created to a volume of 2 L of carbon dioxide. Utilizing a bladeless 5-mm trocar and 0-degree laparoscope, direct visual entry into the abdominal cavity was performed. Pneumoperitoneum was created to a pressure of 15 mmHg and under direct vision, two other 5-mm ports were placed. I started by finding the ileocecal valve and running the small intestine proximally, ran into some dense adhesions, but no dilated bowel. I then moved to the ligament of Treitz, again ran the small intestine from the ligament of Treitz distally, then coming upon some dilated small bowel, which dove into this wad of deep very dense adhesions in the mid posterior abdominal cavity, but I could not define a definite spot of obstruction, so I had to convert to an open operation. A midline incision was performed. Subcu divided sharply. The fascia was incised. Then, the dilated bowel was traced down to this area of very dense adhesions, which were lysed sharply with Metzenbaum scissors. I was able to free this up down to decompress small bowel. It was a long segment of obstruction. Hemostasis was achieved. The abdomen thoroughly irrigated. Bowel was inspected. There was no evidence of enterotomy. The irrigation fluid removed. The fascia closed with a running looped #1 PDS. Subcu was irrigated and the skin was closed with skin christopher. Sterile bandage applied. The patient tolerated the procedure well, transferred to Recovery in good condition. Sponge and needle count verified correct x2. Job ID: [id number]
[2018-12-23] MEDS ORDERED: CEFAZOLIN 2 GM in Premix Bag 1 BAG IVPB SCH (14:00)
[2018-12-23] MEDS ORDERED: Lidocaine 1% PF 5 ML VIAL ONE (16:36)
[2018-12-23] MEDS ORDERED: Ketorolac Tromethamine 30 MG/ML VIAL ONE (16:36)
[2018-12-23] MEDS ORDERED: Dexamethasone 20 MG/5 ML VIAL ONE (16:36)
[2018-12-23] MEDS ORDERED: PROPOFOL 200 MG/20 ML VIAL ONE (16:36)
[2018-12-23] MEDS ORDERED: Glycopyrrolate 0.2 MG/ML 5 ML SYRINGE ONE (16:36)
[2018-12-23] MEDS ORDERED: Rocuronium Bromide 10 MG/ML (10ML VIAL) ONE (16:36)
[2018-12-23] MEDS ORDERED: Ondansetron PF 4 MG/2 ML Vial ONE (16:36)
[2018-12-23] MEDS: Acetaminophen 1,000 MG in Premix Bag 1 BAG IVPB SCH ×3 (17:22→23:31)
[2018-12-23] MEDS: Sodium Chloride 0.9% 1,000 ML IV SCH ×3 (17:22→20:32)
[2018-12-23] MEDS: Famotidine/PF 20 mg/2ml Vial SLOW IVP SCH (20:37)
[2018-12-23] MEDS: Famotidine 20 MG TAB PO SCH (20:40)
[2018-12-24] MEDS ORDERED: CEFAZOLIN 2 GM in Premix Bag 1 BAG IVPB SCH (02:00)
[2018-12-24 05:07] LABS: #Lymphocytes 1.5 thou/uL (1.20-3.40); #Monocytes 0.7 thou/uL (0.11-0.59); #Neutrophils 8.6 thou/uL (1.40-6.50); %Eosinophils 0.1 % (0.0-10.0); %Lymphocytes 13.8 % (21.0-51.0); %Monocytes 6.2 % (0.0-10.0); %Neutrophils 79.9 % (42.0-75.0); Hemoglobin 13.5 g/dL (14.0-18.0); Mean Corpuscular HGB CONC 32.1 g/dL (32.0-36.0); Mean Corpuscular Hemoglobin 31.6 pg (27.0-31.0); Mean Corpuscular Volume 98.3 fL (78.0-98.0); Mean Platelet Volume 8.5 fL (7.4-10.4); Platelet Count 219 thou/uL (130-400); RBC Distribution Width 11.9 % (11.5-14.5); Red Blood Cell (RBC) Count 4.26 mill/uL (4.70-6.10); White Blood Cell (WBC) Count 10.7 thou/uL (4.8-10.8)
[2018-12-24] MEDS: Sodium Chloride 0.9% 1,000 ML IV SCH ×3 (05:25→21:20)
[2018-12-24] MEDS: Acetaminophen 1,000 MG in Premix Bag 1 BAG IVPB SCH (05:26)
[2018-12-24 05:28] LABS: Anion Gap 11 mmol/L (10-20); BUN (Urea Nitrogen) 10 mg/dL (8.4-25.7); Calc. Creatinine Clearance 121 mL/min (70-130); Carbon Dioxide 22 mmol/L (23-31); Chloride 108 mmol/L (98-107); Estimated GFR-MDRD Greater than 90; Glucose 117 mg/dL (83-110); Potassium 4.1 mmol/L (3.5-5.1); Sodium 137 mmol/L (136-145)
--- NOTE | 2018-12-24 07:05 | PDOC.GSPN ---
Surgery Progress Note: Subj - Subjective Narrative: Postoperative Day 1: Patient is doing well. He had a good night sleep and denies any abdominal pain at the moment. He does not feel distended. He has not had any bowel movements or flatus. He remains NPO and he has not had a chance to walk. He denies any complaints. Surgery Progress Note: Obj - Vital signs Vital signs: Vital Signs - Most Recent Temp Pulse Resp BP Pulse Ox 97.8 F 79 16 106/66 92 L 12/24/18 04:35 12/24/18 04:35 12/24/18 04:35 12/24/18 04:35 12/24/18 04:35 - Physical Exam General: no distress ENT: no congestion Neck: trachea midline Cardiovascular: regular rate and rhythm Respiratory: clear to auscultation Abdomen: nondistended, positive bowel sounds Surgery Progress Note: Results - Labs Result Diagrams: 12/24/18 04:27 12/24/18 04:27 Lab results: Laboratory Results - last 24 hr 12/24/18 12/24/18 04:27 04:27 WBC 10.7 RBC 4.26 L Hgb 13.5 L Hct 41.9 L MCV 98.3 H MCH 31.6 H MCHC 32.1 RDW 11.9 Plt Count 219 MPV 8.5 Neutrophils % 79.9 H Lymphocytes % 13.8 L Monocytes % 6.2 Eosinophils % 0.1 Basophils % 0.0 Neutrophils # 8.6 H Lymphocytes # 1.5 Monocytes # 0.7 H Eosinophils # 0.0 Basophils # 0.0 Sodium 137 Potassium 4.1 Chloride 108 H Carbon Dioxide 22 L Anion Gap 11 BUN 10 Creatinine 0.81 Estimated GFR (MDRD) Greater than 90 Glucose 117 H Calcium 8.0 Surgery Progress Note: A/P - Problem (1) SBO (small bowel obstruction) Current Visit: No Code(s): K56.609 - UNSP INTESTNL OBST, UNSP TO PARTIAL VERSUS COMPLETE OBST Status: Acute - Plan Plan: Will continue to monitor the patient. Will begin to advance diet to clear liquids when patient experiences flatus. Continue maintenance fluids. Continue to monitor CBC, electrolytes. Encourage ambulation and the use of incentive spirometer.
[2018-12-24] MEDS: Famotidine/PF 20 mg/2ml Vial SLOW IVP SCH ×2 (09:08→21:21)
[2018-12-24] MEDS: Famotidine 20 MG TAB PO SCH ×2 (09:08→21:21)
[2018-12-24] MEDS: Enoxaparin Sodium 40 MG/0.4 ML SYRINGE SC SCH (10:30)
[2018-12-25] MEDS: fentaNYL Citrate/PF 2,000 MCG in Sodium Chloride 0.9% 60 ML IV PRN (00:03)
--- NOTE | 2018-12-25 07:38 | PDOC.GSPN ---
Surgery Progress Note: Subj - Subjective Narrative: Posoperative day 2: Mr. Nguyen is doing well. He had a good night sleep and denies any abdominal or back pain. He has been tolerating clear liquids fine, but has been belching frequently. He has not passed any flatus nor had a bowel movement since surgery. He has been able to walk without any problems. No new complaints. Surgery Progress Note: Obj - Vital signs Vital signs: Vital Signs - Most Recent Temp Pulse Resp BP Pulse Ox 98.2 F 92 16 146/92 H 92 L 12/25/18 03:35 12/25/18 03:35 12/25/18 03:35 12/25/18 03:35 12/25/18 03:35 - Physical Exam General: no distress ENT: no congestion, normal pinna Neck: no bruits, trachea midline Cardiovascular: regular rate and rhythm Respiratory: clear to auscultation Abdomen: non tender, positive bowel sounds Wound: dressing clean,dry,intact, healing well Surgery Progress Note: Results - Labs Result Diagrams: 12/24/18 04:27 12/24/18 04:27 Surgery Progress Note: A/P - Problem (1) SBO (small bowel obstruction) Current Visit: No Code(s): K56.609 - UNSP INTESTNL OBST, UNSP TO PARTIAL VERSUS COMPLETE OBST Status: Acute - Plan Plan: Will continue to monitor the patient. Encourage ambulation and the use of incentive spirometer. Consider enema for constipation. keep patient in clear liquid diet.
[2018-12-25] MEDS: Famotidine 20 MG TAB PO SCH ×2 (08:18→20:30)
[2018-12-25] MEDS: Sodium Chloride 0.9% 1,000 ML IV SCH ×2 (08:18→17:09)
[2018-12-25] MEDS: Famotidine/PF 20 mg/2ml Vial SLOW IVP SCH ×2 (08:18→20:30)
[2018-12-25] MEDS: Enoxaparin Sodium 40 MG/0.4 ML SYRINGE SC SCH (08:20)
--- NOTE | 2018-12-25 10:12 | PRG ---
DATE OF SERVICE: 12/25/2018 SUBJECTIVE: The patient reports he is belching. No flatus yet. Pain is minimal. No nausea or vomiting. OBJECTIVE: VITAL SIGNS: Temperature 98.2, pulse 84, blood pressure 146/86. GENERAL: He looks good. He is up walking around. ABDOMEN: His abdomen is kind of distended. LABORATORY DATA: Urine output is good. ASSESSMENT: Postoperative ileus, expected. PLAN: Dulcolax suppository. We will check KUB. Keep walking. Job ID: [id number]
--- NOTE | 2018-12-25 10:36 | RAD ---
KUB: 12/25/2018 COMPARISON: 11/30/2018 HISTORY: Postoperative abdominal distention FINDINGS: Supine imaging is provided, limiting assessment for free intraperitoneal air and small alex l obstruction. There is prominent gaseous distention of bowel throughout the abdomen/pelvis. There are vertically oriented cutaneous christopher overlying the lower abdomen/pelvis. The gaseous distention of bowel is felt to involve a combination of large and small bowel with gas-filled dilated small bowel being the most significant finding. IMPRESSION: Prominent gaseous distention of bowel, particularly small bowel, concerning for significa nt postoperative ileus and or small bowel obstruction. CT examination of the abdomen/pelvis is suggested CODE T
[2018-12-25] MEDS: Bisacodyl 10 MG SUPP PR PRN ×2 (12:24→23:53)
[2018-12-25] MEDS: Ondansetron PF 4 MG/2 ML Vial IVP PRN (20:41)
[2018-12-26] MEDS: fentaNYL Citrate/PF 2,000 MCG in Sodium Chloride 0.9% 60 ML IV PRN (05:21)
[2018-12-26] MEDS: Ondansetron PF 4 MG/2 ML Vial IVP PRN (05:22)
[2018-12-26] MEDS: Sodium Chloride 0.9% 1,000 ML IV SCH ×3 (05:22→18:29)
[2018-12-26] MEDS ORDERED: Ketorolac Tromethamine 30 MG/ML VIAL IVP PRN (08:07)
[2018-12-26] MEDS ORDERED: Morphine 4 MG/ML VIAL SLOW IVP PRN (08:08)
[2018-12-26] MEDS: Acetaminophen 1,000 MG in Premix Bag 1 BAG IVPB SCH ×3 (09:09→21:06)
[2018-12-26] MEDS: Enoxaparin Sodium 40 MG/0.4 ML SYRINGE SC SCH (09:10)
[2018-12-26] MEDS: Famotidine/PF 20 mg/2ml Vial SLOW IVP SCH ×2 (09:10→21:06)
[2018-12-26] MEDS: Famotidine 20 MG TAB PO SCH ×2 (09:10→21:06)
--- NOTE | 2018-12-26 12:22 | PRG ---
DATE OF SERVICE: 12/26/2018 SUBJECTIVE: Sameer Nguyen is doing well today. He had some problems and nausea and vomiting yesterday last night. He remains n.p.o. because of that. He has postop ileus 4 days after laparotomy adhesiolysis. The patient has passed some flatus, but no bowel movement. He was using his [employer] very little and this was discontinued and narcotic analgesics ordered. OBJECTIVE: VITAL SIGNS: Temperature 97.9, pulse 107, respirations 20, blood pressure 144/86. HEENT: Head, ears, eyes, nose and throat, unremarkable. LUNGS: Clear to auscultation. CARDIAC: Regular rate and rhythm. ABDOMEN: Soft, mildly distended, tympanitic, diminished bowel sounds. EXTREMITIES: Unremarkable. ASSESSMENT/PLAN: Postoperative adhesiolysis. Awaiting bowel function. Continue fluid support, n.p.o. status until more definitive bowel function. The patient is ambulating frequently. Job ID: [id number]
[2018-12-27] MEDS: Acetaminophen 1,000 MG in Premix Bag 1 BAG IVPB SCH (02:16)
[2018-12-27] MEDS: Sodium Chloride 0.9% 1,000 ML IV SCH ×3 (02:16→11:27)
[2018-12-27] MEDS ORDERED: Acetaminophen 1,000 MG in Premix Bag 1 BAG IVPB PRN (02:30)
[2018-12-27] MEDS: Famotidine 20 MG TAB PO SCH ×2 (09:18→21:12)
[2018-12-27] MEDS: Famotidine/PF 20 mg/2ml Vial SLOW IVP SCH (09:18)
[2018-12-27] MEDS: Enoxaparin Sodium 40 MG/0.4 ML SYRINGE SC SCH (09:18)
[2018-12-27] MEDS ORDERED: traMADol HCl 50 MG TAB PO PRN (16:49)
[2018-12-27] MEDS ORDERED: Acetaminophen 500 MG TAB PO PRN (16:49)
[2018-12-27] MEDS ORDERED: MAG HYDROX PO PRN (16:50)
[2018-12-27] MEDS ORDERED: FAMOTIDINE PO PRN (16:50)
[2018-12-27] MEDS ORDERED: CA CARB PO PRN (16:50)
--- NOTE | 2018-12-27 17:17 | PRG ---
DATE OF SERVICE: 12/27/2018 SUBJECTIVE: Mr. Nguyen is doing well today. He feels much better. He has been passing quite a bit of gas. He has had a scant amount of stool. 97.9, 99, and 156/78. He is not having nausea or vomiting. OBJECTIVE: LUNGS: Clear to auscultation. CARDIAC: Regular rate and rhythm without murmur or gallop. ABDOMEN: Soft. Bowel sounds present. Midline wound looks good. EXTREMITIES: Unremarkable. LABORATORY DATA: Laboratories none. ASSESSMENT AND PLAN: Doing well, resolving ileus. Would increase his diet and activity. Overall seems to be doing much better. Job ID: [id number]
[2018-12-27] MEDS: Simethicone Chewable 80 MG TAB PO SCH (17:21)
[2018-12-27] MEDS ORDERED: Simvastatin 20 MG TAB PO SCH (21:00)
[2018-12-27] MEDS ORDERED: Lisinopril 20 MG TAB PO SCH (21:00)
[2018-12-27] MEDS ORDERED: Amlodipine 10 MG TAB PO SCH (21:00)
[2018-12-27] MEDS ORDERED: Amitriptyline HCl 25 MG TAB PO SCH (21:00)
[2018-12-27] MEDS ORDERED: Losartan 25 MG TAB PO SCH (21:00)
[2018-12-28] MEDS ORDERED: Aspirin 81 mg Enteric Coated Tablet PO SCH (09:00)
[2018-12-28] MEDS: Simethicone Chewable 80 MG TAB PO SCH ×2 (09:07→16:01)
[2018-12-28] MEDS: Famotidine 20 MG TAB PO SCH (09:07)
[2018-12-28] MEDS: Enoxaparin Sodium 40 MG/0.4 ML SYRINGE SC SCH (11:45)
[2018-12-28 16:03] VITALS: BP 134/64; TEMP 97.8
--- NOTE | 2018-12-28 17:09 | PRG ---
DATE OF SERVICE: 12/28/2018 SUBJECTIVE: Sameer Nguyen is doing well today. He is tolerating his diet. He is having bowel movements, passing flatus. He does not have any abdominal pain or little pain he has. He states he can take Advil at home. He is ready for discharge. OBJECTIVE: VITAL SIGNS: Temperature 98.4 degrees, heart rate 83, blood pressure 128/75. HEAD, EARS, EYES, NOSE, AND THROAT: Unremarkable. LUNGS: Clear to auscultation. CARDIAC: Regular rate and rhythm. No murmur or gallop. ABDOMEN: Soft, nontender. No masses. Alirio, wound intact. ASSESSMENT AND PLAN: Doing well. PLAN: Discharge home. Follow up with Dr. Wilkinson in 4 to 7 days for staple removal. Avoid lifting over 25 pounds. Diet and activity as tolerated. Otherwise, resume home medications. Job ID: [id number]
[2018-12-31] MEDS ORDERED: Ibuprofen 600 MG TAB PO PRN (16:49)
== END 2018-12-28 16:13 | disposition home or self-care (01) | DRG 337 ==
LOC: SDC 07:08 → SJJU 10:48
PROVIDERS: ADMIT Surgery; ATTEND Surgery
PROC: 0DN80ZZ Release Small Intestine, Open Approach (ICD-10-PCS; principal; 2018-12-23)
PROC: 0DJW4ZZ Inspection of Peritoneum, Percutaneous Endoscopic Approach (ICD-10-PCS; 2018-12-23)
DX: K56.50 Intestinal adhesions [bands], unspecified as to partial versus complete obstruction (principal); K56.7 Ileus, unspecified; I10 Essential (primary) hypertension; E78.5 Hyperlipidemia, unspecified; K21.9 Gastro-esophageal reflux disease without esophagitis; K59.00 Constipation, unspecified; M19.90 Unspecified osteoarthritis, unspecified site; Z96.653 Presence of artificial knee joint, bilateral; Z88.8 Allergy status to other drugs, medicaments and biological substances; Z79.82 Long term (current) use of aspirin; Z79.899 Other long term (current) drug therapy; Z53.31 Laparoscopic surgical procedure converted to open procedure
CPT/HCPCS: 36415; 74018; 80048; 80053; 85025; 99213; G0463; J0131; J0690; J1100; J1650; J1885; J2001; J2405; J2550; J2704; J3010; J3490; S0028

== ENCOUNTER 2023-07-11 12:56 | Outpatient (CLI) | payer MEDICARE, OTHER | END 2023-07-11 12:57 | disposition home or self-care (01) | LOC: MRI 12:56 | PROVIDERS: ATTEND Family Medicine | DX: G45.9 Transient cerebral ischemic attack, unspecified (principal); I10 Essential (primary) hypertension; R20.0 Anesthesia of skin; I67.89 Other cerebrovascular disease | CPT/HCPCS: 70544; 70551 ==